=== PATIENT | male | born 1950 | race Caucasian/White ===

== ENCOUNTER 2018-01-01 22:37 | Inpatient (IN) | payer MEDICARE ==
[~2018-01-01] VITALS: Ht 180.3 cm; Wt 75.4 kg
[2018-01-01] MEDS ORDERED: hydrochlorothiazide (23:01)
[2018-01-01] MEDS ORDERED: DILTIAZEM 125 MG in DEXTROSE 5% 100 ML IV SCH (23:13)
[2018-01-01] MEDS ORDERED: POTASSIUM CHLORIDE 20 MEQ TAB.ER.PRT ONE (23:19)
[2018-01-01] MEDS ORDERED: POTASSIUM CHLORIDE 20 MEQ TAB.ER.PRT PO ONE (23:30)
[2018-01-01] MEDS ORDERED: HEPARIN 25,000 UNITS/500ML PMX 500 ML IV PRN (23:30)
[2018-01-01] MEDS ORDERED: HEPARIN 5,000 UNITS/ML, 1ML IV ONE (23:30)
[2018-01-01] MEDS ORDERED: HEPARIN 5,000 UNITS/ML, 1ML IV PRN (23:30)
[2018-01-01 23:37] LABS: BASOPHILS # (AUTO) 0.05 x10^3/uL (0-0.1); BASOPHILS % (AUTO) 0 % (0-1); EOSINOPHILS % (AUTO) 1 % (1-7); LYMPHOCYTES # (AUTO) 1.41 x10^3/uL (1-3.4); LYMPHOCYTES % (AUTO) 9 % (22-44); MD NO; MEAN PLATELET VOLUME 7.6 fL (7.4-10.4); MONOCYTES # (AUTO) 0.86 x10^3/uL (0.2-0.8); MONOCYTES % (AUTO) 6 % (2-9); NEUTROPHILS # (AUTO) 12.48 x10^3/uL (1.8-6.8); NEUTROPHILS % (AUTO) 83 % (42-75); PLATELET COUNT 389 x10^3/uL (130-400); RED CELL DISTRIBUTION WIDTH 13.3 % (9.4-14.8)
[2018-01-01 23:51] LABS: ALANINE AMINOTRANSFERASE 24 U/L (12-78); ALBUMIN 3.9 g/dL (3.4-5.0); ANION GAP 8 mmol/L (5-15); CALCIUM 8.5 mg/dL (8.5-10.1); CHLORIDE 109 mmol/L (98-107); CREATININE 0.87 mg/dL (0.7-1.3)
[2018-01-01 23:56] LABS: ALKALINE PHOSPHATASE 87 U/L (45-117); BILIRUBIN,TOTAL 0.4 mg/dL (0.2-1.0); TOTAL PROTEIN 6.9 g/dL (6.4-8.2); TROPONIN I < 0.015 ng/mL (0.000-0.045)
[2018-01-02 00:29] VITALS: BP 109/72
[2018-01-02 00:30] VITALS: BP 115/76
[2018-01-02 00:31] VITALS: BP 96/63
[2018-01-02] MEDS ORDERED: HYDR25TA6 PO (00:53)
[2018-01-02] MEDS ORDERED: ACETAMINOPHEN 325 MG TABLET PO PRN (01:00)
[2018-01-02] MEDS ORDERED: ONDANSETRON ODT 4 MG PO PRN (01:00)
[2018-01-02] MEDS ORDERED: DOCUSATE 100 MG CAPSULE PO PRN (01:00)
[2018-01-02] MEDS ORDERED: DILTIAZEM 125 MG in SODIUM CHLORIDE 0.9% 100 ML IV PRN (01:30)
[2018-01-02] MEDS ORDERED: HEPARIN 5,000 UNITS/ML, 1ML IV PRN (02:00)
[2018-01-02] MEDS ORDERED: HEPARIN 5,000 UNITS/ML, 1ML IV ONE ×2 (02:00→09:00)
[2018-01-02] MEDS ORDERED: HEPARIN 25,000 UNITS/500ML PMX 500 ML IV PRN (02:00)
[2018-01-02] MEDS: MELATONIN 5 MG TABLET PO PRN ×2 (02:09→21:40)
[2018-01-02 05:42] LABS: INTERNATIONAL NORMALIZED RATIO 1.03 (0.93-1.1); PROTHROMBIN TIME 10.6 Seconds (9.6-11.5)
[2018-01-02 08:12] VITALS: BP 104/72
[2018-01-02 08:34] LABS: MICROSCOPIC INDICATED
[2018-01-02 09:32] LABS: CULTURE INDICATED? NO
[2018-01-02] MEDS: HEPARIN 5,000 UNITS/ML, 1ML IV PRN ×2 (12:08→18:59)
[2018-01-02] MEDS: DILTIAZEM 125 MG in SODIUM CHLORIDE 0.9% 100 ML IV PRN ×2 (12:09→18:55)
[2018-01-02] MEDS: HEPARIN 25,000 UNITS/500ML PMX 500 ML IV PRN (12:21)
[2018-01-02 12:38] VITALS: BP 97/65
[2018-01-02] MEDS ORDERED: GADOBUTROL 7.5 MMOL/7.5 ML PFS ONE (14:36)
[2018-01-02 18:42] VITALS: BP 106/69
[2018-01-02] MEDS ORDERED: MELATONIN 5 MG TABLET PO SCH (21:00)
[2018-01-03 01:52] VITALS: BP 117/74
[2018-01-03] MEDS: DILTIAZEM 125 MG in SODIUM CHLORIDE 0.9% 100 ML IV PRN (04:58)
[2018-01-03 06:41] VITALS: BP 124/72
[2018-01-03 07:09] LABS: BASOPHILS # (AUTO) 0.06 x10^3/uL (0-0.1); BASOPHILS % (AUTO) 0 % (0-1); EOSINOPHILS # (AUTO) 0.11 x10^3/uL (0-0.4); EOSINOPHILS % (AUTO) 1 % (1-7); LYMPHOCYTES # (AUTO) 1.08 x10^3/uL (1-3.4); LYMPHOCYTES % (AUTO) 7 % (22-44); MD NO; MEAN CORPUSCULAR HGB CONC 34.7 g/dL (33.2-36.2); MEAN CORPUSCULAR VOLUME 92.3 fL (81-97); MEAN PLATELET VOLUME 7.5 fL (7.4-10.4); MONOCYTES # (AUTO) 1.03 x10^3/uL (0.2-0.8); MONOCYTES % (AUTO) 7 % (2-9); NEUTROPHILS # (AUTO) 12.52 x10^3/uL (1.8-6.8); NEUTROPHILS % (AUTO) 85 % (42-75); PLATELET COUNT 303 x10^3/uL (130-400); RED BLOOD COUNT 4.74 x10^6/uL (4.38-5.82); RED CELL DISTRIBUTION WIDTH 13.1 % (9.4-14.8)
[2018-01-03 07:16] LABS: ALANINE AMINOTRANSFERASE 22 U/L (12-78); ALBUMIN 3.4 g/dL (3.4-5.0); ANION GAP 6 mmol/L (5-15); CALCIUM 8.5 mg/dL (8.5-10.1); CHLORIDE 105 mmol/L (98-107); CREATININE 0.74 mg/dL (0.7-1.3)
[2018-01-03 07:19] LABS: ALKALINE PHOSPHATASE 97 U/L (45-117); BILIRUBIN,TOTAL 0.8 mg/dL (0.2-1.0); TOTAL PROTEIN 6.3 g/dL (6.4-8.2)
[2018-01-03 08:05] LABS: TROPONIN I < 0.015 ng/mL (0.000-0.045)
[2018-01-03] MEDS ORDERED: DILTIAZEM 30 MG TABLET ONE ×2 (08:18→20:15)
[2018-01-03] MEDS: POTASSIUM CHLORIDE 20 MEQ TAB.ER.PRT PO SCH ×2 (08:23→09:49)
[2018-01-03] MEDS: DILTIAZEM 60 MG TABLET PO SCH ×2 (08:24→09:54)
[2018-01-03] MEDS: HEPARIN 5,000 UNITS/ML, 1ML IV PRN ×2 (08:26→22:22)
[2018-01-03] MEDS: HEPARIN 25,000 UNITS/500ML PMX 500 ML IV PRN (08:31)
[2018-01-03 13:34] VITALS: BP 114/74
[2018-01-03] MEDS: DILTIAZEM 90 MG TABLET PO SCH ×2 (14:36→20:19)
[2018-01-03 18:27] VITALS: BP 100/62
[2018-01-03 20:20] VITALS: BP 100/64
[2018-01-03] MEDS: MELATONIN 5 MG TABLET PO PRN (21:57)
[2018-01-04 00:54] VITALS: BP 107/64
[2018-01-04] MEDS: HEPARIN 25,000 UNITS/500ML PMX 500 ML IV PRN (02:43)
[2018-01-04 04:30] VITALS: BP 107/62
[2018-01-04] MEDS: DILTIAZEM 90 MG TABLET PO SCH (04:35)
[2018-01-04 05:25] LABS: CHLORIDE 108 mmol/L (98-107)
[2018-01-04 05:31] LABS: BASOPHILS # (AUTO) 0.06 x10^3/uL (0-0.1); BASOPHILS % (AUTO) 1 % (0-1); EOSINOPHILS # (AUTO) 0.18 x10^3/uL (0-0.4); EOSINOPHILS % (AUTO) 2 % (1-7); LYMPHOCYTES # (AUTO) 1.59 x10^3/uL (1-3.4); LYMPHOCYTES % (AUTO) 15 % (22-44); MD NO; MEAN CORPUSCULAR HEMOGLOBIN 31.7 pg (27.5-34.5); MEAN CORPUSCULAR HGB CONC 33.6 g/dL (33.2-36.2); MEAN CORPUSCULAR VOLUME 94.3 fL (81-97); MEAN PLATELET VOLUME 8.4 fL (7.4-10.4); MONOCYTES # (AUTO) 0.89 x10^3/uL (0.2-0.8); MONOCYTES % (AUTO) 8 % (2-9); NEUTROPHILS # (AUTO) 7.94 x10^3/uL (1.8-6.8); NEUTROPHILS % (AUTO) 74 % (42-75); PLATELET COUNT 246 x10^3/uL (130-400); RED BLOOD COUNT 4.66 x10^6/uL (4.38-5.82); RED CELL DISTRIBUTION WIDTH 13.4 % (9.4-14.8)
[2018-01-04 05:35] LABS: ALANINE AMINOTRANSFERASE 20 U/L (12-78); ALBUMIN 3.1 g/dL (3.4-5.0); ALKALINE PHOSPHATASE 90 U/L (45-117); ANION GAP 5 mmol/L (5-15); CALCIUM 8.4 mg/dL (8.5-10.1); CREATININE 0.67 mg/dL (0.7-1.3); TOTAL PROTEIN 6.1 g/dL (6.4-8.2)
[2018-01-04] MEDS: HEPARIN 5,000 UNITS/ML, 1ML IV PRN (05:55)
[2018-01-04] MEDS ORDERED: DILT360T PO (10:40)
[2018-01-04] MEDS ORDERED: APIX5TAB PO (10:40)
[2018-01-04] MEDS ORDERED: APIXABAN 5 MG TABLET PO SCH (11:00)
[2018-01-04] MEDS ORDERED: DILTIAZEM CD 180 MG CAP.ER.24H PO SCH (11:30)
[2018-01-04 12:31] VITALS: BP 111/65
[2018-01-05] MEDS ORDERED: DILTIAZEM CD 180 MG CAP.ER.24H PO SCH (11:00)
== END 2018-01-04 14:45 | disposition home or self-care (01) | DRG 74 ==
LOC: ED 23:24 → EDIP 23:29 → ED 23:41 → 5SO 01-02 00:14 → DCLOUNGE 01-04 14:35
PROVIDERS: ADMIT Internal Medicine; ATTEND Internal Medicine
DX: G90.8 Other disorders of autonomic nervous system (principal); I48.92 Unspecified atrial flutter; D68.59 Other primary thrombophilia; I48.91 Unspecified atrial fibrillation; N20.0 Calculus of kidney; E87.6 Hypokalemia; Z80.42 Family history of malignant neoplasm of prostate; Z90.79 Acquired absence of other genital organ(s); Z90.89 Acquired absence of other organs
CPT/HCPCS: 36415; 70450; 70553; 71045; 80053; 81001; 83735; 84443; 84484; 85025; 85520; 85610; 93005; 93306; 93880; 96365; A9585; G0378; J1644